=== PATIENT | female | born 1955 | race Hispanic/Latino ===

== ENCOUNTER → 2019-02-13 | Outpatient (CLI) | payer OTHER ==
[~2019-02-13] MED LIST: BACITRACIN 50,000 UNIT VIAL ONE; CEFAZOLIN SOD 2 GM/D5W 50ML 50 ML IV ONE; CELECOXIB 200 MG CAP ONE; DEXAMETHASONE SOD PHOS 10 MG/1 ML VIAL ONE; FENTANYL CITRATE/PF 100MCG/2 ML INJ ONE; GABAPENTIN 300 MG CAP ONE; LIDOCAINE 2%/ EPINEPHRINE 20ML MDV ONE; MIDAZOLAM HCL 2 MG/2 ML VIAL ONE; ROPIVACAINE 0.5% 5 MG/ML 30 ML SDV ONE; ROPIVACAINE 246.25 MG, EPINEPHRINE HCL 1:1000 1ML 0.5 MG, CLONIDINE HCL 0.08 MG, KETORO... INJ ONE; SODIUM CHLORIDE 0.9% 500ML 0 ML ONE; TRANEXAMIC ACID 1,000 MG/10 ML ML ONE; VANCOMYCIN HCL 1 GM VIAL ONE; VANCOMYCIN HCL 500 MG ONE
[2019-02-16 10:50] VITALS: BP 125/87
== END ==
LOC: LAB 05:00 → OR 02-16 06:47 → EDSTATUS 02-16 09:00
PROVIDERS: ATTEND Specialist
DX: Z01.812 Encounter for preprocedural laboratory examination (principal)
CPT/HCPCS: 86850; 86900; 86920; 93005; J0171; J0690; J1100; J1885; J2001; J2795; J3370; J7040

== ENCOUNTER 2019-04-13 08:35 | Observation (INO) | payer OTHER ==
[2019-04-10 11:18] LABS: BASOPHILS % 0.5 % (0.0-1.0); EOSINOPHILS # (AUTO) 0.3 (0.0-0.4); EOSINOPHILS % 6.2 % (0.0-6.0); HEMATOCRIT 40.5 % (34.2-44.1); HEMOGLOBIN 13.3 g/dL (12.0-16.0); LYMPHOCYTES # (AUTO) 1.2 (1.0-3.2); LYMPHOCYTES % 21.7 % (18.0-39.1); MEAN CORPUSCULAR HEMOGLOBIN 29.8 pg (28-32); MEAN CORPUSCULAR HGB CONC 32.8 g/dL (31-35); MEAN CORPUSCULAR VOLUME 90.8 fL (81-99); MONOCYTES # (AUTO) 0.3 (0.2-0.8); MONOCYTES % 6.2 % (4.4-11.3); NEUTROPHILS # (AUTO) 3.6 (2.1-6.9); NEUTROPHILS % 65.2 % (38.7-80.0); PLATELET COUNT 227 x10e3/uL (140-360); RED BLOOD COUNT 4.46 x10e6/uL (3.6-5.1); RED CELL DISTRIBUTION WIDTH 12.1 % (11.7-14.4)
[~2019-04-13] VITALS: Ht 154.9 cm; Wt 88.1 kg
[~2019-04-13 08:35] MED LIST changes: -CEFAZOLIN SOD 2 GM/D5W 50ML 50 ML IV ONE; -CELECOXIB 200 MG CAP ONE; -DEXAMETHASONE SOD PHOS 10 MG/1 ML VIAL ONE; -FENTANYL CITRATE/PF 100MCG/2 ML INJ ONE; -GABAPENTIN 300 MG CAP ONE; -LIDOCAINE 2%/ EPINEPHRINE 20ML MDV ONE; -MIDAZOLAM HCL 2 MG/2 ML VIAL ONE; -ROPIVACAINE 0.5% 5 MG/ML 30 ML SDV ONE; -SODIUM CHLORIDE 0.9% 500ML 0 ML ONE; +SODIUM CHLORIDE 0.9% 500ML 500 ML ONE; -VANCOMYCIN HCL 1 GM VIAL ONE; +VANCOMYCIN HCL 1,000 MG ONE; -VANCOMYCIN HCL 500 MG ONE
[2019-04-13] MEDS ORDERED: GABAPENTIN 300 MG CAP ONE (08:53)
[2019-04-13] MEDS ORDERED: CELECOXIB 200 MG CAP ONE (08:53)
[2019-04-13] MEDS ORDERED: DEXAMETHASONE SOD PHOS 10 MG/1 ML VIAL ONE (08:53)
[2019-04-13] MEDS ORDERED: CEFAZOLIN SOD 2 GM/D5W 50ML 50 ML IV ONE (08:53)
[2019-04-13] MEDS ORDERED: ACETAMINOPHEN 1000 MG/100 ML 100 ML IV ONE (11:31)
[2019-04-13] MEDS: SODIUM CHLORIDE 0.9% 1000ML 1,000 ML IV SCH ×2 (12:19→22:19)
[2019-04-13] MEDS ORDERED: KETOROLAC TROMETHAMINE 30 MG/ML VIAL IV PRN (12:30)
[2019-04-13] MEDS ORDERED: ACETAMINOPHEN 650 MG SUPP PR PRN (12:30)
[2019-04-13] MEDS ORDERED: DOCUSATE SODIUM 100 MG CAP PO PRN (12:30)
[2019-04-13] MEDS ORDERED: PROMETHAZINE HCL (IM) 25 MG/ML VIAL IM PRN (12:30)
[2019-04-13] MEDS ORDERED: DIPHENHYDRAMINE HCL INJ 50 MG/ML VIAL IM/IV PRN (12:30)
[2019-04-13] MEDS ORDERED: ONDANSETRON HCL INJ 2MG/ML 2ML 2 MG/ML VIAL IV PRN (12:30)
[2019-04-13] MEDS ORDERED: HYDROCODONE/APAP 5MG-325MG TAB PO PRN (12:30)
[2019-04-13] MEDS ORDERED: HYDROCODONE/APAP 7.5MG-325MG 1 EA TAB PO PRN (12:30)
--- NOTE | 2019-04-13 13:05 | Diagnostic Imaging Report ---
Radiographs of the right knee - 2 views HISTORY: Pain COMPARISON: None available. FINDINGS: Bones: No acute displaced fracture. Osseous alignment is within normal limits. Joints: Status post right knee replacement with associated postsurgical change. The surgical hardware is intact without evidence of failure or loosening. Soft tissues: The soft tissues appear unremarkable. IMPRESSION: Status post right knee replacement with associated postsurgical change. The surgical hardware is intact without evidence of failure or loosening. Signed by: Dr. Nikko Rushing M.D. on 04/13/2019 1:02 PM
--- NOTE | 2019-04-13 13:30 | NUR ---
RECEIVED PATIENT FROM RECOVERY. PATIENT A/O X3, EVEN RESPIRATIONS UNLABORED ON 2LNC. BOWEL SOUNDS ACTIVE. RIGHT KNEE DRESSING IN PLACE WITH GELY BANDAGE. LEFT HAND 20 GAUGE IV WITH LR @ 100 CC/HR. NO PAIN OR DISCOMFORT AT THIS TIME. VITAL SIGNS STABLE. BED LOW, WHEELS LOCKED, SIDE RAILS X2. CALL LIGHT IN REACH WILL CONTINUE TO MONITOR PATIENT.
[2019-04-13 13:45] VITALS: BP 135/80
--- OUTSIDE RECORDS SUMMARY | 2019-04-13 13:51 | XMS REPORT ---
Author Author [facility] Address Unknown Phone Unavailable Care Team Providers Care International Trade Analyst Name Role Phone ESTRELLITA SORIANO Unavailable Unavailable Problems This patient has no known problems. Allergies, Adverse Reactions, Alerts This patient has no known allergies or adverse reactions. Medications This patient has no known medications. Results Test Description Test Time Test Comments Text Results Atomic Results Result Comments KNEE RIGHT 1-2 VIEWS 2019-04-13 13:01:00 [place] [address] Patient Name: TAWANDA MCKEON MR #: [id number] : 1955 Age/Sex: 63/F Req #: [id number] [facility] Physician: Ordered by: ESTRELLITA SORIANO MD Report #: [id number] Location: OR Room/Bed: Procedure: [id number] DX/KNEE RIGHT 1-2 VIEWS Exam Date: Exam Time: REPORT STATUS: Signed Radiographs of the right knee - 2 views HISTORY: Pain COMPARI SON: None available. FINDINGS: Bones: No acute displaced fracture. Osseous alignment is within normal limits. Joints: Status post right knee replacement with associated postsurgical change. The surgical hardware is intact without evidence of failure or loosening. Soft tissues: The soft tissues appear unremarkable. IMPRESSION: Status post right knee replacement with associated postsurgical change. The surgical hardware is intact without evidence of failure or loosening. Signed by: Dr. Nikko Rushing M.D. on 04/13/2019 1:02 PM Dictated By: NIKKO RUSHING MD, MD 1302 Transcribed By: ALBERTO on 04/13/19 1302 COPY TO: ESTRELLITA SORIANO MD
[2019-04-13] MEDS ORDERED: MIDAZOLAM HCL 2 MG/2 ML VIAL ONE (14:16)
[2019-04-13] MEDS ORDERED: FENTANYL CITRATE/PF 100MCG/2 ML INJ ONE (14:16)
[2019-04-13 15:18] VITALS: BP 135/80
[2019-04-13 15:23] VITALS: BP 135/80
--- NOTE | 2019-04-13 16:03 | NUR ---
PATIENT DME AND HOME HEALTH COMPANIES PRE-ARRANGED BY DR. SORIANO'S OFFICE. PATIENT WITH HOME HEALTH AND DME CONTACT INFORMATION. PATIENT AWARE TO CALL CM IF ANY PROBLEMS OCCUR WITHIN 3 DAYS POST- DISCHARGE. HOME HEALTH EXPLAINED IN DEPTH WITH SERVICES PROVIDED. PATIENT VERBALLY UNDERSTOOD. THE FOLLOWING HOME HEALTH AND DME COMPANY VERIFIED PATIENT IS ON SERVICE WITH THEM: [facility] (P) [phone] (F) [phone] CM CALLED AND SPOKE TO KAREN. PATIENT NOT CONFIRMED. CM SENT CLINICAL, H/P, POST-OP INSTRUCTIONS, ORDER TO [facility] SO THEY COULD INITIATE AUTH. PER KAREN, PATIENT TO BE CONFIRMED OR DENIED WITHIN 2 DAYS. PATIENT ANTICIPATED DISCHARGE 04/14. KAREN AWARE. [facility] (P) [phone] (F) [phone] CM CALLED AND CONFIRMED PATIENT RECEIVED EQUIPMENT: WALKER WITH WHEELS, CPM, 3 IN 1 COMMODE. PATIENT TO HAVE WALKER AT BEDSIDE FOR DISCHARGE.
[2019-04-13 16:23] VITALS: BP 134/62
[2019-04-13] MEDS: ACETAMINOPHEN 1000 MG/100 ML IV SCH (16:55)
[2019-04-13] MEDS ORDERED: CELECOXIB 100 MG CAP PO SCH (17:00)
--- NOTE | 2019-04-13 17:32 | NUR ---
PATIENT HAS VOIDED SINCE SURGERY IN BEDPAN.
[2019-04-13] MEDS: ASPIRIN 325 MG TAB PO SCH (17:35)
[2019-04-13] MEDS: CELECOXIB 200 MG CAP PO SCH (17:35)
[2019-04-13] MEDS: CEFAZOLIN SOD 1 GM/NS 50ML 50 ML IV SCH (17:36)
[2019-04-13] MEDS ORDERED: PROPOFOL IV EMULSION 10 MG/ML 20 ML VIAL ONE (17:53)
[2019-04-13] MEDS ORDERED: SEVOFLURANE INHAL SOLN 250 ML PEN BTL ONE (17:53)
[2019-04-13] MEDS ORDERED: LIDOCAINE HCL 2% LOCAL INJ 5 ML SDV VIAL INJ ONE (17:53)
[2019-04-13] MEDS ORDERED: ONDANSETRON HCL INJ 2MG/ML 2ML 2 MG/ML VIAL ONE (17:53)
[2019-04-13] MEDS ORDERED: ROPIVACAINE 0.5% 5 MG/ML 30 ML SDV ONE (18:04)
[2019-04-13] MEDS ORDERED: LIDOCAINE 2%/ EPINEPHRINE 20ML MDV ONE (18:04)
--- NOTE | 2019-04-13 18:13 | Operative Report ---
DATE OF PROCEDURE: 04/13/2019 SURGEON: Catracho Leblanc MD MOTHER'S HELPER: Severiano Mir PA-C. PREOPERATIVE DIAGNOSIS: Osteoarthritis right knee. POSTOPERATIVE DIAGNOSIS: Osteoarthritis right knee. PROCEDURE: Right total knee arthroplasty. INDICATIONS: The patient is a 63-year-old lady with end-stage arthritis of her right knee. She has failed conservative management and would like to proceed with a right total knee replacement. The risks and benefits of the procedure have been discussed. She states she understands and wishes to proceed. PROCEDURE IN DETAIL: The patient was brought to the operating room and placed under general anesthetic. She received prophylactic antibiotics, a regional block and tranexamic acid in the holding area. Her right lower extremity was prepped and draped in a sterile manner. A preoperative time-out was performed. The extremity was exsanguinated and a proximal tourniquet was inflated to 300 mmHg. An anterior approach with a medial parapatellar arthrotomy was performed. Due to the patient's short stature, exposure was challenging. The cruciate ligaments were sacrificed. Soft tissue releases were performed to bring the knee up into flexion with the patella everted. Meniscal remnants and marginal osteophytes were removed. A Garcia and NephHackermeter knee system was used throughout the case. An extramedullary cutting guide was used to resect the proximal tibia. The tibial base plate was noted to be a size 3. The central fin punch was impacted and attention was directed towards the distal femur. An intramedullary cutting guide was used to resect the distal femur in 6 degrees of valgus and rotation referencing off a combination of landmarks including Whitesides line, the epicondylar axis and the posterior condyles. The femoral component was a size #5. The anterior and posterior cuts were made. A trial reduction was performed. A 9 mm ultracongruent tibial insert provided appropriate soft tissue balancing in flexion and extension. The patella was resurfaced with a 29 mm x 9 mm patellar button. The thickness was checked before and after and was right around 22 mm. Patellar tracking was noted to be concentric. The trial implants were removed. A 100 mL premixed pericapsular FRIDA injection was placed into the surrounding soft tissue. The knee was thoroughly irrigated with a shower tip pulsatile lavage. Irrigation had also been performed throughout the case with a diluted spray bottle of polymyxin and vancomycin mixture. The components were cemented into place using a single mix of Palacos cement preloaded with antibiotics. Care was taken to remove extravasated cement. The wound was further irrigated while the cement cured. The arthrotomy was then closed with interrupted #1 Ethibond stitches. The knee was put through flexion and extension to ensure a secure closure. The skin was closed with subcuticular Vicryl and charlene. A sterile bandage was applied. The patient was extubated and transported to the recovery room in stable condition. Blood loss was minimal. All needle and sponge counts were correct. Catracho Leblanc MD DR/NATHAN /[id number]
[2019-04-13 20:00] VITALS: BP 101/56
--- NOTE | 2019-04-13 20:40 | NUR ---
Assessment done.right knee dressing site is dry.assisted to use bed johnson.voided.bed locked and in lowets position.using ics.phone and call light within reach.informed to call for assistance as needed.
[2019-04-13 21:00] VITALS: BP 101/56
[2019-04-13] MEDS ORDERED: ZOLPIDEM TARTRATE 5 MG TAB PO PRN (21:00)
--- NOTE | 2019-04-13 22:00 | NUR ---
CPM APPLIED 50 FLEXION DEGREE.PT TOLERATED WELL.
[2019-04-14] VITALS: BP 117/58
[2019-04-14] MEDS: ACETAMINOPHEN 1000 MG/100 ML IV SCH ×3 (00:30→12:18)
[2019-04-14] MEDS: CEFAZOLIN SOD 1 GM/NS 50ML 50 ML IV SCH ×2 (01:13→10:10)
--- NOTE | 2019-04-14 03:00 | NUR ---
Pt is resting comfortably in the bed.stable condition.
--- NOTE | 2019-04-14 03:00 | Consultation ---
DATE OF CONSULTATION: HISTORY OF PRESENT ILLNESS: This is a consult for medical management, status post right total knee arthroplasty. The patient is a 63-year-old female with history of bilateral osteoarthritis, was seen by Dr. Leblanc and a right knee total replacement was done. MEDICAL HISTORY: Negative. SOCIAL HISTORY: The patient has no EtOH abuse, IV drug abuse, or smoking history. MEDICATIONS: The patient has no current medications. ALLERGIES: NKDA. REVIEW OF SYSTEMS: Negative for chest pain or shortness of breath. No nausea, vomiting, or diarrhea. No constipation. No rectal bleeding. No hematochezia. The patient has bilateral knee pain, currently status post arthroplasty. PHYSICAL EXAMINATION: GENERAL: The patient is alert and oriented, in pain. VITAL SIGNS: Temperature is 95.7, pulse of 62, respirations 17, blood pressure is 134/62, and pulse oximetry of 98%. HEENT: Normocephalic and atraumatic. Pupils are reactive to light and accommodation. CVS: S1, S2 normal. Regular rate and rhythm. ABDOMEN: Nontender and nondistended. EXTREMITIES: Right knee, status post arthroplasty. The patient is currently resting. No complaints. ASSESSMENT: 1. Right knee arthroplasty. 2. Osteoarthritis. PLAN: Plan is to continue to monitor the patient, postoperative H and H will be done. Standard postoperative care to be done and we will start the patient on antihypertensives as needed and also we will continue monitoring the lytes and labs, further recommendation and clinical course. MD YOKO SepulvedaJ/MODL /[id number]
[2019-04-14 04:00] VITALS: BP 136/71
--- NOTE | 2019-04-14 06:00 | NUR ---
Cpm applied to R.leg 50 degree flexion .pt is tolerating well.
[2019-04-14 06:12] LABS: HEMATOCRIT 35.4 % (34.2-44.1); HEMOGLOBIN 11.2 g/dL (12.0-16.0)
--- NOTE | 2019-04-14 06:50 | NUR ---
Report given to the oncoming rn.waking rounds done.stable condition.
--- NOTE | 2019-04-14 07:10 | NUR ---
PT RESTING IN BED AA0X3. PT IS MACEDONIAN SPEAKING ONLY PT IS ON CPM AT THIS TIME TOLERATING WELL RIGHT KNEE DRESSING IS DRY AND INTACT BILATERAL STOCKINGS AND FOOT PUMPS PRESENT PT IV TO THE LEFT HAND 20 [address] PATENT AND DRY WILL CONTINUE TO MONITOR PT CLOSELY, SIDE RAILSX2, BED WHEELS LOCKED, CALL LIGHT IS WITHIN EASY REACH, INSTRUCTED TO CALL FOR ASSISTANCE IF NEEDED
[2019-04-14 07:50] VITALS: BP 138/65
[2019-04-14] MEDS: CELECOXIB 200 MG CAP PO SCH (07:50)
[2019-04-14] MEDS: ASPIRIN 325 MG TAB PO SCH (07:50)
[2019-04-14] MEDS: SODIUM CHLORIDE 0.9% 1000ML 1,000 ML IV SCH (08:19)
[2019-04-14 08:41] VITALS: BP 138/65
--- NOTE | 2019-04-14 09:06 | Progress Note ---
DATE: SUBJECTIVE: The patient is here status post right knee arthroplasty. No complaints noted by the patient. The patient's pain controlled by hydrocodone, acetaminophen, and Toradol, is on a CPM machine at this time. No chest pains. No shortness of breath. No postoperative complications noted. No paresthesias. No hyperesthesias. PHYSICAL EXAMINATION: VITAL SIGNS: Temperature is 98.6, pulse of 66, respirations of 20, blood pressure is 136/71, pulse oximetry of 95%. HEENT: Normocephalic, atraumatic. Pupils are reactive to light and accommodation. CVS: S1, S2 normal. Regular rate and rhythm. ABDOMEN: Nontender, nondistended. EXTREMITIES: No clubbing. No cyanosis. Positive for pulses bilaterally 2+. The patient's wound right knee, clean, dry. ASSESSMENT: 1. Status post right knee replacement. 2. Continue with postoperative care. Monitor H and H and lytes. Continue with current care. Hemoglobin is pending. Last hemoglobin is 13.3 and hematocrit of 48.5. MD YOKO SepulvedaJ/MODL /[id number]
[2019-04-14 11:46] VITALS: BP 124/67
[2019-04-14] MEDS ORDERED: ACETAMINOPHEN 1000 MG/100 ML IV PRN (12:30)
[2019-04-14] MEDS ORDERED: ASPIRIN325 MG PO (13:22)
[2019-04-14] MEDS ORDERED: NORCO 7.5-3251 EACH PO (14:29)
--- NOTE | 2019-04-14 14:54 | NUR ---
DISCHARGE INSTRUCTIONS AND PRESCRIPTIONS GIVEN. PT VERBALIZED UNDERSTANDING IV DC PRESSURE DRESSING APPLIED AND TAPED HH SET AND EQUIPMENT WITH PT PT IS NOW WAITING RIDE HOME
--- NOTE | 2019-04-14 16:05 | NUR ---
pt off unit to home via wheel chair
== END 2019-04-14 15:50 | disposition home health service (06) ==
LOC: OR 08:35 → PACU V 12:21 → MED/SURG 13:30
PROVIDERS: ADMIT Specialist; ATTEND Specialist
DX: M17.0 Bilateral primary osteoarthritis of knee (principal)
CPT/HCPCS: 36415; 85014; 85018; 85025; 86850; 86900; 86920; 97139; G0378; J0171; J0690; J1100; J1885; J2001; J2250; J2405; J2795; J3370; J7030; J7040

== ENCOUNTER 2019-05-29 08:47 | Outpatient (RCR) | payer OTHER ==
[~2019-05-29 08:47] MED LIST changes: +ASPIRIN325 MG PO; -BACITRACIN 50,000 UNIT VIAL ONE; +NORCO 7.5-3251 EACH PO; -ROPIVACAINE 246.25 MG, EPINEPHRINE HCL 1:1000 1ML 0.5 MG, CLONIDINE HCL 0.08 MG, KETORO... INJ ONE; -SODIUM CHLORIDE 0.9% 500ML 500 ML ONE; -TRANEXAMIC ACID 1,000 MG/10 ML ML ONE; -VANCOMYCIN HCL 1,000 MG ONE
== END 2019-05-31 ==
LOC: PT 08:47
PROVIDERS: ATTEND Specialist
DX: Z96.651 Presence of right artificial knee joint (principal); Z47.1 Aftercare following joint replacement surgery

== ENCOUNTER 2019-06-30 09:46 | Outpatient (RCR) | payer OTHER | END 2019-07-01 | LOC: PT 09:46 | PROVIDERS: ATTEND Specialist | DX: Z96.651 Presence of right artificial knee joint (principal); Z47.1 Aftercare following joint replacement surgery; M62.81 Muscle weakness (generalized); M25.561 Pain in right knee; M25.661 Stiffness of right knee, not elsewhere classified | CPT/HCPCS: 97139 ==

== ENCOUNTER 2019-07-31 09:46 | Outpatient (RCR) | payer OTHER | END 2019-08-01 | LOC: PT 09:46 | PROVIDERS: ATTEND Specialist | DX: Z96.651 Presence of right artificial knee joint (principal); Z47.1 Aftercare following joint replacement surgery; R26.2 Difficulty in walking, not elsewhere classified ==

== ENCOUNTER 2019-08-17 12:59 | Outpatient (RCR) | payer OTHER | END 2019-08-31 | LOC: PT 12:59 | PROVIDERS: ATTEND Specialist | DX: Z96.651 Presence of right artificial knee joint (principal); Z47.1 Aftercare following joint replacement surgery; R26.2 Difficulty in walking, not elsewhere classified ==